=== PATIENT | male | born 1995 | race Caucasian/White ===

== ENCOUNTER 2017-07-14 20:08 | Emergency (ER) | payer BC ==
[~2017-07-14] VITALS: Ht 182.9 cm; Wt 84.1 kg
[2017-07-14 20:11] VITALS: BP 159/85; TEMP 98.7
[2017-07-14 22:37] VITALS: PULSE 64
== END 2017-07-14 22:37 | disposition home or self-care (01) ==
LOC: COL.ER 20:08
DX: S01.81XA Laceration without foreign body of other part of head, initial encounter (principal); S63.501A Unspecified sprain of right wrist, initial encounter; S80.211A Abrasion, right knee, initial encounter; V00.132A Skateboarder colliding with stationary object, initial encounter; Y93.51 Activity, roller skating (inline) and skateboarding

== ENCOUNTER 2017-07-23 12:56 | Emergency (ER) | payer BC ==
[2017-07-23 12:58] VITALS: BP 130/73; PULSE 65; TEMP 97.6
== END 2017-07-23 13:43 | disposition home or self-care (01) ==
LOC: COL.ER 12:56
DX: S01.81XD Laceration without foreign body of other part of head, subsequent encounter (principal); X58.XXXD Exposure to other specified factors, subsequent encounter